=== PATIENT | female | born 2000 | race Caucasian/White ===

== ENCOUNTER → 2018-04-09 | Outpatient (REF) | END | disposition home or self-care (01) | DRG 951 | LOC: PAGE 09:00 | PROVIDERS: ATTEND Nurse Practitioner Family | DX: Z02.1 Encounter for pre-employment examination (principal); Z23 Encounter for immunization ==

== ENCOUNTER 2018-06-14 20:08 | Emergency (ER) | payer OTHER ==
[~2018-06-14] VITALS: Ht 157.5 cm; Wt 81.8 kg
[2018-06-14 20:55] LABS: URINE BILIRUBIN - DIPSTICK NEGATIVE (NEGATIVE); URINE BLOOD DIPSTICK SMALL (NEGATIVE); URINE GLUCOSE - DIPSTICK 250 mg/dL (NEGATIVE); URINE KETONE 15 mg/dL (NEGATIVE); URINE LEUK ESTERASE TRACE (NEGATIVE); URINE PH 7.5 (4.5-8.0); URINE PROTEIN - DIPSTICK 100 mg/dL (NEG-TRACE); URINE SPECIFIC GRAVITY 1.015; URINE UROBILINOGEN - DIPSTICK >=8.0 E.U./dL (0.2)
[2018-06-14 20:56] LABS: URINE NITRITE - DIPSTICK POSITIVE (Negative)
[2018-06-14 21:02] LABS: URINE BACTERIA FEW hpf; URINE COLOR ORANGE; URINE SQUAMOUS EPITHELIAL CELL FEW EPI/hpf (0-FEW)
[2018-06-14] MEDS ORDERED: AMOXICILLIN875 MG PO (21:24)
[2018-06-14] MEDS ORDERED: PYRIDIUM200 MG PO (21:26)
[2018-06-14 21:50] VITALS: BP 126/78
== END 2018-06-14 21:50 | disposition home or self-care (01) | DRG 690 ==
LOC: ED 20:08
DX: N39.0 Urinary tract infection, site not specified (principal); H66.93 Otitis media, unspecified, bilateral; R50.9 Fever, unspecified; H92.03 Otalgia, bilateral

== ENCOUNTER 2018-06-21 21:20 | Emergency (ER) | payer OTHER ==
[~2018-06-21] VITALS: Ht 157.5 cm; Wt 80.9 kg
[~2018-06-21 21:20] MED LIST: AMOXICILLIN875 MG PO; PYRIDIUM200 MG PO
[2018-06-21] MEDS ORDERED: CHERATUSSIN PO (21:39)
[2018-06-21] MEDS ORDERED: FLOXIN OTIC0.3 % AD (21:39)
[2018-06-21 21:45] VITALS: BP 127/88
== END 2018-06-21 21:45 | disposition home or self-care (01) | DRG 156 ==
LOC: ED 21:20
DX: H60.91 Unspecified otitis externa, right ear (principal); J06.9 Acute upper respiratory infection, unspecified

== ENCOUNTER 2019-05-01 22:33 | Emergency (ER) | payer OTHER ==
[~2019-05-01 22:33] MED LIST changes: +CHERATUSSIN PO; +FLOXIN OTIC0.3 % AD
[2019-05-02] MEDS ORDERED: MICONAZOLE 3200 MG VA (00:06)
[2019-05-02 00:45] VITALS: BP 137/82
== END 2019-05-02 00:50 | disposition home or self-care (01) ==
LOC: ED 22:33
DX: B37.3 Candidiasis of vulva and vagina (principal)